=== PATIENT | male | born 1990 | race Caucasian/White ===

== ENCOUNTER 2023-07-10 12:00 | Emergency (ER) | payer OTHER, SELFPAY ==
[2023-07-10 12:00] VITALS: BP 111/65; PULSE 105; RESP 18; TEMP 37.1; O2SAT 98
--- NOTE | 2023-07-10 12:00 | RT.EKG_ITS ---
APPROVED REPORT Exam: Resting ECG Reason for Exam: dizziness Patient Location: E HR:106 bpm ECG Measurements Heart Rate 106 AXIS WI 131 P 75 QRSd 75 QRS 48 QT 332 T 44 QTc 442 Conclusion Sinus tachycardia...rate> 99 Physician: no stemi
[2023-07-10 13:34] VITALS: BP 112/88; PULSE 118; RESP 15; TEMP 36.7; O2SAT 100
[2023-07-10 14:33] VITALS: RESP 12
[2023-07-10] MEDS: Normal Saline 1,000 ML 1000 ML IV (15:04)
[2023-07-10] MEDS: Normal Saline Flush 10 ML SYR IVP (15:04)
[2023-07-10] MEDS: Ondansetron 4 MG/2 ML VIAL IVP (15:04)
[2023-07-10] MEDS: Famotidine 20 MG/2 ML VIAL IVP (15:05)
[2023-07-10 15:06] LABS: COVID-19 PCR Negative (Negative); Influenza A PCR Negative (Negative); Influenza B PCR Negative (Negative); RSV PCR Negative (Negative)
[2023-07-10 15:07] LABS: Source Nasopharynx
[2023-07-10 15:11] LABS: Abs Immature Grans 0.06 10^3/uL (0.0-0.06); Absolute Eosinophil Count 0.02 10^3/uL (0.0-0.7); Absolute Monocyte Count 0.79 10^3/uL (0.1-0.8); Basophils % 0.2 %; Eosinophils % 0.1 %; HCT 42.7 % (40.0-50.0); HGB 15.3 g/dL (13.5-17.5); Immature Grans % 0.4 %; Lymphocytes % 1.6 %; MCH 31.5 pg (27.0-33.0); MCHC 35.8 % (32.0-36.0); MCV 88 fL (80-95); MPV 9.5 fL (8.0-11.0); Monocytes % 4.8 %; Neutrophils % 92.9 %; Platelet Count 390 10^3/uL (130-400); RBC 4.85 10^6/uL (4.36-5.78); RDW 13.7 % (11.8-14.1); RDW-SD 44.3 fL; WBC 16.39 10^3/uL (4.4-10.8)
--- NOTE | 2023-07-10 15:13 | W.ED.GENAD ---
Discharge Plan Disposition Patient Disposition: Home Discharge Details Clinical Impression: Gastroenteritis Primary Care Provider: [place],Local ED Provider: Amish Moore Discharge Instructions Instructions: Gastroenteritis (ED) Additional Instructions: Please stay well-hydrated, drinking plenty of electrolyte rich fluids such as Gatorlyte. advance diet slowly as tolerated, avoiding spicy/greasy/fried foods. Return to emergency care if you develop new severe vomiting, severe abdominal pain, blood in stool or emesis, or if you are very worried and need to be rechecked again immediately HPI General Date/Time Provider Initiated Documentation: 07/10/23 12:52. HPI Narrative: German is a 32-year-old male with history of cystic fibrosis and GERD who presents to the emergency department today for nausea/vomiting and dizziness. 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 He started feeling hot/cold flashes, increased belching and flatulence. He quickly developed diarrhea and vomiting, multiple times of each. No blood in stool or emesis. At 830 this morning while he was driving he felt dizzy (this resolved with laying down but then returned when he tried to drive again, so he pulled over to the side of the road and was brought to the emergency department for evaluation). No syncope. He denies recorded fever, congestion, sore throat, cough, chest pain, abdominal pain, or other recent illness. No known triggers. Related Data Allergies Allergy/AdvReac Type Severity Reaction Status Date / Time Sulfa (Sulfonamide Allergy Other (See Verified 07/10/23 12:05 Antibiotics) Comment) General Stated Complaint: Dizzy/Sync REYES: 3 Review of Systems Narrative: see HPI Exam Const General: cooperative, healthy appearing, comfortable, no acute distress and well developed Nutritional Appearance: average body habitus HENFL Mouth: moist mucous membranes abnormal (slightly tacky) Resp Effort & Inspection: normal respiratory effort and able to speak in complete sentences Auscultation: clear to auscultation bilaterally Cardio Rate: regular rate Rhythm: regular rhythm GI Inspection: normal to inspection and non-distended Palpation: soft, not rigid and nontender Course Vital Signs Vital signs: Vital Signs Temperature 37.1 C 07/10/23 12:00 Pulse 105 H 07/10/23 12:00 Respiratory Rate 18 07/10/23 12:00 Blood Pressure 111/65 07/10/23 12:00 Pulse Oximetry 98 07/10/23 12:00 Temperature 36.7 C 07/10/23 13:34 Temperature Source Tympanic 07/10/23 13:34 Pulse 118 H 07/10/23 13:34 Respiratory Rate 12 07/10/23 14:33 Respiratory Effort Normal, Non-Labored 07/10/23 14:33 Respiratory Depth Normal 07/10/23 14:33 Respiratory Pattern Normal 07/10/23 14:33 Blood Pressure 112/88 07/10/23 13:34 Blood Pressure Position Sitting 07/10/23 12:00 Pulse Oximetry 100 07/10/23 13:34 Oxygen Delivery Method Room Air 07/10/23 13:34 Oxygen Flow Rate 0 07/10/23 13:34 Lab/Test Results Lab/Test Results: Laboratory Tests Range/Units 07/10/23 14:14 COVID-19 Source Nasopharynx SARS-CoV-2 (PCR) (Negative) Negative Influenza Type A (PCR) (Negative) Negative Influenza Type B (PCR) (Negative) Negative RSV (PCR) (Negative) Negative Medical Decision Making German is a 32-year-old male with history of cystic fibrosis and GERD who presents to the emergency department today for nausea/vomiting and dizziness. 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 He started feeling hot/cold flashes, increased belching and flatulence. He quickly developed diarrhea and vomiting, multiple times of each. No blood in stool or emesis. At 830 this morning while he was driving he felt dizzy (this resolved with laying down but then returned when he tried to drive again, so he pulled over to the side of the road and was brought to the emergency department for evaluation). No syncope. He denies recorded fever, congestion, sore throat, cough, chest pain, abdominal pain, or other recent illness. No known triggers. Physical exam very reassuring. Slightly tacky mucous membranes. Patient is alert and oriented, no acute distress. Easy work of breathing, lung sounds clear bilaterally. Normal heart sounds. Abdomen is soft, nondistended, nontender to palpation with normoactive bowel sounds. DDx includes but is not limited to viral or bacterial gastroenteritis, dehydration, electrolyte imbalance. No red flags concerning for acute abdomen requiring diagnostic imaging such as CT scan at this time. I independently interpreted the following tests: CBC remarkable for leukocytosis, with white cell count 16.39. CMP notable for elevated BUN to creatinine ratio, creatinine 0.9 BUN 28. Mild hypomagnesemia, with magnesium 1.6. COVID/flu/RSV negative. While in the emergency department German received IV fluids, famotidine, and Zofran. He reports he is feeling better and is currently taking PO. Handoff report given to mell Parada MELANY. Quality:SDOH Health Related Social Needs: No Data to Display [facility], LAT[facility] All Active Problems (Updated 07/10/23 @ 15:57 by Sangita Soto) Gastroenteritis (Acute) Social History Smoking/Tobacco Use Status: Never Smoking risk assessment performed?: Yes Alcohol Intake: never Substance use type: does not use Sign Out Sign Out Data: Sign Out Comment: German is a 32-year-old male who presented to the emergency department today for evaluation after sudden onset of nausea/vomiting, 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 Awaiting labs. Given IV fluids and Zofran/famotidine. Last updated by Sangita Guy at 07/10/23 15:49
[2023-07-10 15:17] LABS: Absolute Basophil Count 0.03 10^3/uL (0.0-0.2); Absolute Lymphocyte Count 0.26 10^3/uL (1.2-3.4); Absolute Neutrophil Count 15.23 10^3/uL (1.2-6.7)
[2023-07-10 15:39] LABS: ALT 22 U/L (16-63); AST 19 U/L (15-37); Albumin 4.5 g/dL (3.4-5.0); Alkaline Phosphatase 75 U/L (46-116); Anion Gap 12.3 mmol/L (3-11); BUN 28 mg/dL (7-18); Bilirubin, Total 0.9 mg/dL (0.2-1.0); CO2 25.7 mmol/L (21.0-32.0); CREATININE 0.9 mg/dL (0.70-1.30); Calcium 9.1 mg/dL (8.5-10.1); Chloride 99 mmol/L (98-107); Estimated GFR 116.37 (mL/min/1.73m2); Glucose 113 mg/dL (74-106); Magnesium 1.6 mg/dL (1.8-2.4); Potassium 3.9 mmol/L (3.5-5.1); Sodium 137 mmol/L (136-145); Total Protein 7.9 g/dL (6.4-8.2)
--- NOTE | 2023-07-10 16:20 | W.EDPROG ---
Date of service: 07/10/23 Time of Service: 16:20 Medical Decision Making This dictation utilizes [id number] dictation software and may contain unedited grammatical errors. Patient seen in sign-out from Sangita Asencio NP - please see her complete note. Essentially, this 32 y/o M presents to ED today with a chief complaint of nausea/vomiting/diarrhea and dizziness, with chills/fever since 0830 this morning. 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 [ ]. Patients' medical history: cystic fibrosis without cough or respiratory complaint. Family and social history: works as a truck driver helper. Pertinent exam findings / vital signs include benign abdomen, benign cardiopulmonary status, neuro intact. Differential / pathologies of concern include gastroenteritis, dizziness, nausea and vomiting. Diagnostic studies of: -CBC, CMP, magnesium, EKG, COVID/flu/RSV PCR. -Mildly low magnesium, leukocytosis without focal system complaint, COVID flu RSV negative, EKG benign Interventions of: -Received famotidine IV fluids and ondansetron, pending p.o. challenge for discharge. ED Course/Assessment/Plan: Patient was feeling much better and tolerated p.o. intake, I did enrollment counselor him on possible gastroenteritis as cause of nausea and vomiting and dizziness. The patient was feeling much better he did wish to return to [place], I did stressed that should he have continued dizziness, nausea vomiting or focal abdominal pain especially with fever that he be reevaluated urgently at a medical facility. Patient and patient's verbalized understanding of this. Findings not consistent with syncope, profound electrolyte abnormality, severe dehydration, neurologic abnormality. Disposition of gastroenteritis. Patient verbalized understanding of the plan and return to ED criteria and engaged in shared decision making. Medical Records Medical records reviewed: Yes I reviewed the patient's medical records. Lab Data Lab results reviewed: Yes I reviewed the patient's lab results. Labs: Laboratory Tests Range/Units 07/10/23 07/10/23 14:14 14:52 WBC (4.4-10.8) 10^3/uL 16.39 H RBC (4.36-5.78) 10^6/uL 4.85 Hgb (13.5-17.5) g/dL 15.3 Hct (40.0-50.0) % 42.7 MCV (80-95) fL 88 MCH (27.0-33.0) pg 31.5 MCHC (32.0-36.0) % 35.8 RDW (11.8-14.1) % 13.7 Plt Count (130-400) 10^3/uL 390 MPV (8.0-11.0) fL 9.5 Immature Gran % % 0.4 Neutrophils % % 92.9 Lymphocytes % % 1.6 Monocytes % % 4.8 Eosinophils % % 0.1 Basophils % % 0.2 Nucleated RBC % (0.0-0.3) % 0.0 Absolute Neutrophils (1.2-6.7) 10^3/uL 15.23 H Absolute Lymphocytes (1.2-3.4) 10^3/uL 0.26 L Absolute Monocytes (0.1-0.8) 10^3/uL 0.79 Absolute Eosinophils (0.0-0.7) 10^3/uL 0.02 Absolute Basophils (0.0-0.2) 10^3/uL 0.03 Sodium (136-145) mmol/L 137 Potassium (3.5-5.1) mmol/L 3.9 Chloride (98-107) mmol/L 99 Carbon Dioxide (21.0-32.0) mmol/L 25.7 Anion Gap (3-11) mmol/L 12.3 H BUN (7-18) mg/dL 28 H Creatinine (0.70-1.30) mg/dL 0.9 Est GFR (CKD-EPI 2020) (mL/min/1.73m2) 116.37 Glucose (74-106) mg/dL 113 H Calcium (8.5-10.1) mg/dL 9.1 Magnesium (1.8-2.4) mg/dL 1.6 L Total Bilirubin (0.2-1.0) mg/dL 0.9 AST (15-37) U/L 19 ALT (16-63) U/L 22 Alkaline Phosphatase (46-116) U/L 75 Total Protein (6.4-8.2) g/dL 7.9 Albumin (3.4-5.0) g/dL 4.5 COVID-19 Source Nasopharynx SARS-CoV-2 (PCR) (Negative) Negative Influenza Type A (PCR) (Negative) Negative Influenza Type B (PCR) (Negative) Negative RSV (PCR) (Negative) Negative Quality:SDOH Health Related Social Needs: No Data to Display Sign Out Sign Out Data: Sign Out Comment: German is a 32-year-old male who presented to the emergency department today for evaluation after sudden onset of nausea/vomiting, 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 Awaiting labs. Given IV fluids and Zofran/famotidine. Last updated by Sangita Guy at 07/10/23 15:49 Discharge Plan Disposition Patient Disposition: Home Discharge Details Clinical Impression: Gastroenteritis Primary Care Provider: [place],Local ED Provider: Amish Moore Discharge Instructions Instructions: Gastroenteritis (ED) Additional Instructions: You were seen in the emergency department for your nausea and vomiting with dizziness. It is possible you have a stomach bug or gastroenteritis. Your labs do show a mild elevation of your white blood cells which can be due to vomiting but also stomach bug. Your EKG shows no concern for cardiac cause of dizziness or cardiac abnormality. Your labs showed mildly low magnesium which would replete with normal p.o. intake. We provided you with IV fluids, some Pepcid and an antinausea medicine called ondansetron. This improved your symptoms and you are able to tolerate p.o. intake. Please introduce foods slowly over time including small bites of plain foods, do not try to overwhelm your stomach, take small sips of Gatorade to stay well-hydrated. You tested negative for COVID/flu/RSV, I would advise that you return to [place], should you have continued fever, continued nausea vomiting especially with fast heart rate and not feeling well I think he should present to an ED for reevaluation. Discharge Data Discharge Date/Time-TO BE ENTERED AT DEPARTURE: 07/10/23 16:48
[2023-07-10 16:48] VITALS: BP 99/61; PULSE 98; RESP 12; O2SAT 97
== END 2023-07-10 16:48 | disposition home or self-care (01) ==
PROVIDERS: Nurse Practitioner Family; Emergency Provider Physician Assistant
DX: K52.9 Noninfective gastroenteritis and colitis, unspecified (principal); E84.9 Cystic fibrosis, unspecified
CPT/HCPCS: 00123; 36415; 80053; 81025; 82962; 87637; 93005; 96361; 96374; 99284; 83735; 85025; 93010; J2405